=== PATIENT | female | born 1975 ===

== ENCOUNTER 2022-03-03 09:32 | Outpatient (CLI) | payer OTHER, SELFPAY ==
--- NOTE | 2022-03-03 09:35 | EST_ITS ---
Patient Info Name: Teodora Mc Age: 46 years : 1975 Gender: Female Ht: 62 in Wt: 178 lbs BSA: 1.91 m2 Exam Date: 03/03/2022 10:07 AM Exam Location: [facility] Stress Patient Status: Outpatient Admit Date: 03/03/2022 Staff Ordering Physician: Hernandez Hernandez DO Attending Provider: Hernandez Hernandez DO Exercise Technologist: Janine Bennett RDCS Exercise Physician: Hernandez Hernandez DO Exam Type: CA stress test treadmill Study Info Indications R07.9 - Chest pain, unspecified A treadmill exercise stress test was performed. Summary 1. 1. Negative Markos exercise stress test for ischemic ST changes by ECG criteria. 2. 2. Reduced functional capacity, achieving 8 METs of workload. 3. 3. Appropriate HR response to exercise. 4. 4. Appropriate HR recovery at 1 minute post exercise. 5. 5. No imaging with stress testing. 6. 6. Patient informed of the above results. Protocol: [facility] Stress ECG Details Stage: REST Duration (min): 0 min : 53 sec Speed (mph): 0.0 Grade (%): 0 HR (bpm): 80 SBP (mmHg): 137 DBP (mmHg): 90 METS: --- Stage: REST Duration (min): 7 min : 58 sec Speed (mph): 0.0 Grade (%): 0 HR (bpm): 92 SBP (mmHg): 137 DBP (mmHg): 90 METS: --- Stage: STAGE 1 Duration (min): 1 min : 0 sec Speed (mph): 1.7 Grade (%): 10 HR (bpm): 106 SBP (mmHg): 137 DBP (mmHg): 90 METS: --- Stage: STAGE 1 Duration (min): 2 min : 0 sec Speed (mph): 1.7 Grade (%): 10 HR (bpm): 112 SBP (mmHg): 137 DBP (mmHg): 90 METS: --- Stage: STAGE 1 Duration (min): 3 min : 0 sec Speed (mph): 1.7 Grade (%): 10 HR (bpm): 118 SBP (mmHg): 150 DBP (mmHg): 86 METS: --- Stage: STAGE 2 Duration (min): 1 min : 0 sec Speed (mph): 2.5 Grade (%): 12 HR (bpm): 132 SBP (mmHg): 150 DBP (mmHg): 86 METS: --- Stage: STAGE 2 Duration (min): 2 min : 0 sec Speed (mph): 2.5 Grade (%): 12 HR (bpm): 140 SBP (mmHg): 162 DBP (mmHg): 78 METS: --- Stage: STAGE 2 Duration (min): 3 min : 0 sec Speed (mph): 2.5 Grade (%): 12 HR (bpm): 149 SBP (mmHg): 162 DBP (mmHg): 78 METS: --- Stage: STAGE 3 Duration (min): 0 min : 32 sec Speed (mph): 3.4 Grade (%): 14 HR (bpm): 160 SBP (mmHg): 162 DBP (mmHg): 78 METS: --- Stage: RECOVERY Duration (min): 0 min : 27 sec Speed (mph): 0.0 Grade (%): 0 HR (bpm): 154 SBP (mmHg): 177 DBP (mmHg): 87 METS: --- Stage: RECOVERY Duration (min): 1 min : 27 sec Speed (mph): 0.0 Grade (%): 0 HR (bpm): 122 SBP (mmHg): 177 DBP (mmHg): 87 METS: --- Stage: RECOVERY Duration (min): 2 min : 27 sec Speed (mph): 0.0 Grade (%): 0 HR (bpm): 111 SBP (mmHg): 177 DBP (mmHg): 87 METS: --- Stage: RECOVERY Duration (min): 3 min : 27 sec
== END 2022-03-03 09:33 | disposition home or self-care (01) ==
LOC: ANHCARD 09:34
PROVIDERS: PCP Physician Assistant; Visit Provider Internal Medicine Cardiovascular Disease
DX: R07.9 Chest pain, unspecified (principal)
CPT/HCPCS: 93017